=== PATIENT | male | born 1990 | race African-American/Black ===

== ENCOUNTER 2021-07-13 10:45 | Emergency (ER) | payer SELFPAY ==
[~2021-07-13] VITALS: Ht 172.7 cm; Wt 59.0 kg
--- NOTE | 2021-07-13 10:45 | NUR ---
TO ER BED 14. BIB RA 99 FOUND FACEDOWN AT THE LIBRARY, PT HAS LOW BLOOD PRESSURE AND SINUS MARLENE ON THE MONITOR, 250CC NS GIVEN SPOOL WINDER. PT ATTCHED TO MONITOR, NO RESPIRATORY DISTRESS NOTED. AWAITING MD AMAYA.
[2021-07-13] MEDS: IV NS 0.9% 1,000 ML BAG IV ONE (11:09)
--- NOTE | 2021-07-13 11:10 | NUR ---
LAB AT BEDSIDE
--- NOTE | 2021-07-13 11:10 | NUR ---
PT UNABLE TO PROVIDE URINE AT THIS TIME
[2021-07-13 11:21] LABS: BASOPHILS # (AUTO) 0.1 K/uL (0.0-0.2); EOSINOPHILS % (AUTO) 0.8 % (0.0-6.0); HEMATOCRIT 51 % (39-51); HEMOGLOBIN 16.9 g/dL (13.5-17.5); LYMPHOCYTES # (AUTO) 1.7 K/uL (0.8-4.8); LYMPHOCYTES % (AUTO) 28.5 % (20.0-44.0); MEAN CORPUSCULAR HGB CONC 33 g/dl (31.0-36.0); MEAN CORPUSCULAR VOLUME 85 fL (80-96); MONOCYTES # (AUTO) 0.6 K/uL (0.1-1.30); MONOCYTES % (AUTO) 9.8 % (2.0-12.0); NEUTROPHILS # (AUTO) 3.6 K/uL (1.8-8.9); NEUTROPHILS % (AUTO) 59.9 % (43.0-81.0); PLATELET COUNT (AUTO) 271 K/uL (150-450); RED BLOOD CELL COUNT(AUTO) 5.98 MIL/uL (4.5-6.0)
[2021-07-13 11:35] LABS: CALCIUM, SERUM 7.8 mg/dL (8.5-10.1); CARBON DIOXIDE 31 mmol/L (21-32); CHLORIDE 107 mmol/L (98-107); CREATININE 1.3 mg/dL (0.6-1.3); GLUCOSE 81 mg/dL (74-106); POTASSIUM 3.5 mmol/L (3.5-5.1); SODIUM SERUM 141 mmol/L (136-145); UREA NITROGEN, BLOOD 14 mg/dL (7-18)
[2021-07-13 11:40] LABS: ACETAMINOPHEN 4 ug/ml (10-30); ALANINE AMINOTRANSFERASE 19 U/L (12-78); ALBUMIN 2.8 g/dL (3.4-5.0); ALKALINE PHOSPHATASE 47 U/L (46-116); ASPARTATE AMINOTRANSFERASE 18 U/L (15-37); BILIRUBIN,DIRECT 0.1 mg/dL (0.0-0.2); BILIRUBIN,TOTAL 0.5 mg/dL (0.2-1.0); TOTAL PROTEIN, SERUM 4.9 g/dL (6.4-8.2)
[2021-07-13 11:45] LABS: ALCOHOL, BLOOD < 3 mg/dL (0-0)
[2021-07-13 14:49] VITALS: BP 112/74
--- NOTE | 2021-07-13 14:49 | NUR ---
IV removed. Catheter intact and site benign. Pressure and 4x4 applied to site. No bleeding noted.Patient discharged to home in stable condition. Written and verbal after care instructions given. Patient verbalizes understanding of instruction.
== END 2021-07-13 14:50 | disposition home or self-care (01) ==
LOC: ER 10:47
DX: R55 Syncope and collapse (principal)
CPT/HCPCS: 36415; 71045; 80048; 80076; 80143; 80320; 83605; 84145; 84484; 85025; 85730; 87040 ×2; 93005; 96360; 96361; 99291; J7030; G0480